=== PATIENT | male | born 1940 | race Caucasian/White ===

== ENCOUNTER 2018-05-13 10:34 | Emergency (ER) | payer MEDICARE, OTHER ==
[~2018-05-13] VITALS: Ht 182.9 cm; Wt 104.3 kg
--- NOTE | 2018-05-13 10:34 | NUR ---
ED Nurse Note: received patient from [facility], Patient is a/o x4 ambulatory steady gait patient reports near syncope while getting 2D echo in a clinic BP is high, 216/89 Hx of HTN Patient reports he recently changed his BP medication
[2018-05-13 10:36] VITALS: BP 216/89
--- NOTE | 2018-05-13 10:42 | NUR ---
ED Nurse Note: patient reports switching amlodipine to lisinopril about 1 week ago. 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
[2018-05-13] MEDS ORDERED: Metoclopramide 10mg/2ml Inj IVP ONE (11:00)
[2018-05-13] MEDS ORDERED: Meclizine 25mg tab ORAL ONE (11:00)
[2018-05-13 11:10] LABS: BASOPHILS % (AUTO) 0.8 % (0.0-2.0); EOSINOPHILS % (AUTO) 2.7 % (0.0-3.0); HEMATOCRIT 40.4 % (42.0-52.0); HEMOGLOBIN 12.8 G/DL (14.2-18.0); LYMPHOCYTES % (AUTO) 23.8 % (20.0-45.0); MEAN CORPUSCULAR VOLUME 89 FL (80-99); MONOCYTES % (AUTO) 8.5 % (1.0-10.0); NEUTROPHILS % (AUTO) 64.2 % (45.0-75.0); PLATELET COUNT 130 K/UL (150-450); RED BLOOD COUNT 4.53 M/UL (4.70-6.10); RED CELL DISTRIBUTION WIDTH 13.1 % (11.6-14.8)
[2018-05-13 11:17] LABS: ANION GAP 10 mmol/L (5-15); BLOOD UREA NITROGEN 31 mg/dL (7-18); CARBON DIOXIDE 26 MMOL/L (21-32); CHLORIDE 104 MMOL/L (98-107); CREATININE 1.7 MG/DL (0.55-1.30); POTASSIUM 4.2 MMOL/L (3.5-5.1); SODIUM 140 MMOL/L (136-145)
--- NOTE | 2018-05-13 11:20 | Diagnostic Imaging Report ---
Indication: Dyspnea Comparison: None A single view chest radiograph was obtained. Findings: Interstitial and vascular prominence noted and mild. Borderline cardiomegaly noted. Bones are osteopenic. No definite pleural effusions are seen. IMPRESSION: Some findings to suggest mild CHF. Correlate clinically. Suggest follow-up.
[2018-05-13 11:30] LABS: ALANINE AMINOTRANSFERASE 40 U/L (12-78); ALBUMIN 3.8 G/DL (3.4-5.0); ALBUMIN/GLOBULIN RATIO 1.1 (1.0-2.7); ALKALINE PHOSPHATASE 102 U/L (46-116); ASPARTATE AMINO TRANSFERASE 23 U/L (15-37); BILIRUBIN,TOTAL 0.6 MG/DL (0.2-1.0); CKMB 2.6 NG/ML (0.0-3.6); CREATINE KINASE 199 U/L (26-308)
[2018-05-13] MEDS ORDERED: MECLIZINE HCL25 MG ORAL (12:12)
--- NOTE | 2018-05-13 12:25 | NUR ---
ED Nurse Note: Patient cleared for discharge per ERMD. AO4. NAD. VSS. Patient given prescriptions and discharge instructions; verbalized understanding. ID removed. IV removed without complication. Patient ambulated steady out of ED with all belongings. cleared dc for bp 173/82 pt will follow up with pmd, pt verbalized will see pmd soon.
[2018-05-13 12:34] VITALS: BP 173/82
--- NOTE | 2018-05-13 13:46 | Emergency Room Report ---
History of Present Illness General Chief Complaint: Syncope Source: Patient Present Illness HPI 77-year-old male presents ED for evaluation. Brought in by EMS. Stating patient "passed out". States that he was getting outpatient ECHO performed; states he was in his left lateral decubitus position and started to feel dizzy and lightheaded. Denies LOC. States he felt that the room was spinning. Denies any headache. Denies any chest pain or shortness of breath. States that this is happened once or twice in the past. States he feels dizzy with sudden head movements. No other aggravating relieving factors. Denies any other associated symptoms Allergies: Coded Allergies: BEE VENOM PROTEIN (HONEY BEE) (Unverified Allergy, Severe, Anaphylaxis, ) CHLORHEXIDINE (Unverified Allergy, Unknown, Hives, 05/13/18) Patient History Past Medical History: HTN, COPD Past Surgical History: none Pertinent Family History: none Social History: Denies: smoking, alcohol use, drug use Immunizations: UTD Reviewed Nursing Documentation: PMH: Agreed; PSxH: Agreed Nursing Documentation-PMH Past Medical History: No History, Except For Hx Hypertension: Yes Hx COPD: Yes Review of Systems All Other Systems: negative except mentioned in HPI Physical Exam Vital Signs Date Time Temp Pulse Resp B/P (MAP) Pulse Ox O2 Delivery O2 Flow Rate FiO2 05/13/18 10:15 98.4 70 18 215/107 98 Room Air Sp02 EP Interpretation: reviewed, normal General Appearance: no apparent distress, alert, GCS 15, non-toxic Head: normocephalic, atraumatic Eyes: bilateral eye normal inspection, bilateral eye PERRL ENT: hearing grossly normal, normal pharynx, no angioedema, normal voice Neck: full range of motion, supple/symm/no masses Respiratory: chest non-tender, lungs clear, normal breath sounds, speaking full sentences Cardiovascular #1: regular rate, rhythm, no edema Cardiovascular #2: 2+ carotid (R), 2+ carotid (L), 2+ radial (R), 2+ radial (L) , 2+ dorsalis pedis (R), 2+ dorsalis pedis (L) Gastrointestinal: normal bowel sounds, non tender, soft, non-distended, no guarding, no rebound Rectal: deferred Genitourinary: normal inspection, no CVA tenderness Musculoskeletal: back normal, gait/station normal, normal range of motion, non- tender Neurologic: alert, oriented x3, responsive, soft sugar supervisor III-XII nml as tested, motor strength/tone normal, sensory intact, cerebellar normal, normal gait, speech normal Psychiatric: judgement/insight normal, memory normal, mood/affect normal, no suicidal/homicidal ideation Reflexes: 3+ bicep (R), 3+ bicep (L), 3+ tricep (R), 3+ tricep (L), 3+ knee (R) , 3+ knee (L) Skin: normal color, no rash, warm/dry, well hydrated Lymphatic: no adenopathy Medical Decision Making Diagnostic Impression: Primary Impression: Vertigo ER Course Hospital Course 77-year-old male presents ED complaining of dizziness Differential diagnoses include: IN/unstable angina, SVT, A. fib, V. tach, CVA/ TIA, intracranial mass, vertigo Clinical course Patient placed on stretcher. on rn cardiac rehab. After initial history, physical exam reveals elderly male in no acute distress. With sudden head position changes patient started to feel dizzy sensation. No focal neurological deficits. I ordered labs, EKG, IVFs, meclizine, reglan labs reviewed- no leukocytosis, hemoglobin/hematocrit stable, electrolytes okay , troponins negative EKG - NSR, no acute ischemic changes interpreted by me CXR - no acute process Upon reassessment patient states his symptoms have improved. Clinical findings consistent with vertigo. Discussed findings with patient. Discussed findings with Dr. Cyril Victor; he agrees with assessment and believes patient can be safely discharged to home. Has appointment tomorrow I. I feel this is a highly complex case requiring extensive working including EKG/Rhythm strip, Xray/CT/US, Blood/urine lab work, repeat exams while in ED, and administration of strong opiates/narcotics for pain control, admission to hospital or close patient follow up. Diagnosis - vertigo stable and discharged to home with prescription for meclizine. Followup with PMD. Return to ED if symptoms recur or worsen Labs Test 05/13/18 10:47 White Blood Count 7.0 K/UL (4.8-10.8) Red Blood Count 4.53 M/UL (4.70-6.10) Hemoglobin 12.8 G/DL (14.2-18.0) Hematocrit 40.4 % (42.0-52.0) Mean Corpuscular Volume 89 FL (80-99) Mean Corpuscular Hemoglobin 28.3 PG (27.0-31.0) Mean Corpuscular Hemoglobin Concent 31.7 G/DL (32.0-36.0) Red Cell Distribution Width 13.1 % (11.6-14.8) Platelet Count 130 K/UL (150-450) Mean Platelet Volume 7.8 FL (6.5-10.1) Neutrophils (%) (Auto) 64.2 % (45.0-75.0) Lymphocytes (%) (Auto) 23.8 % (20.0-45.0) Monocytes (%) (Auto) 8.5 % (1.0-10.0) Eosinophils (%) (Auto) 2.7 % (0.0-3.0) Basophils (%) (Auto) 0.8 % (0.0-2.0) Sodium Level 140 MMOL/L (136-145) Potassium Level 4.2 MMOL/L (3.5-5.1) Chloride Level 104 MMOL/L (98-107) Carbon Dioxide Level 26 MMOL/L (21-32) Anion Gap 10 mmol/L (5-15) Blood Urea Nitrogen 31 mg/dL (7-18) Creatinine 1.7 MG/DL (0.55-1.30) Estimat Glomerular Filtration Rate mL/min (>60) Glucose Level 153 MG/DL (74-106) Calcium Level 9.0 MG/DL (8.5-10.1) Total Bilirubin 0.6 MG/DL (0.2-1.0) Aspartate Amino Transf (AST/SGOT) 23 U/L (15-37) Alanine Aminotransferase (ALT/SGPT) 40 U/L (12-78) Alkaline Phosphatase 102 U/L (46-116) Total Creatine Kinase 199 U/L (26-308) Creatine Kinase MB 2.6 NG/ML (0.0-3.6) Creatine Kinase MB Relative Index 1.3 Troponin I 0.003 ng/mL (0.000-0.056) Total Protein 7.3 G/DL (6.4-8.2) Albumin 3.8 G/DL (3.4-5.0) Globulin 3.5 g/dL Albumin/Globulin Ratio 1.1 (1.0-2.7) EKG Diagnostic Results Rate: normal Rhythm: NSR ST Segments: no acute changes ASA given to the pt in ED: No Rhythm Strip Diag. Results EP Interpretation: yes Rhythm: NSR, no PVC's, no ectopy Chest X-Ray Diagnostic Results Chest X-Ray Diagnostic Results : Chest X-Ray Ordered: Yes # of Views/Limited/Complete: 1 View Indication: Other - dizziness EP Interpretation: Yes Interpretation: no consolidation, no effusion, no pneumothorax, no acute cardiopulmonary disease Impression: No acute disease Electronically Signed by: Electronically signed by Scottie Hendrickson MD Last Vital Signs Date Time Temp Pulse Resp B/P (MAP) Pulse Ox O2 Delivery O2 Flow Rate FiO2 05/13/18 12:34 98.4 66 18 173/82 96 Room Air Status: improved Disposition: HOME, SELF-CARE Condition: Stable Scripts Meclizine Hcl* (MECLIZINE*) 25 Mg Tablet 25 MG ORAL THREE TIMES A DAY for 5 Days, TAB Prov: Scottie Hendrickson MD 05/13/18 Patient Instructions: Vertigo, [id number] Scottie Hendrickson MD May 13, 2018 13:46
== END 2018-05-13 12:30 | disposition home or self-care (01) ==
LOC: EDBD 10:34 → EMR 11:20
DX: R42 Dizziness and giddiness (principal); J44.9 Chronic obstructive pulmonary disease, unspecified; I10 Essential (primary) hypertension
CPT/HCPCS: 36415; 71045; 80053; 82550; 82553; 84484; 85025; 93005; 96374; 99284; J2765; J7040